=== PATIENT | female | born 1955 | race Caucasian/White ===

== ENCOUNTER 2021-12-07 18:05 | Emergency (ER) | payer OTHER, SELFPAY ==
[2021-12-07 18:09] VITALS: BP 168/89; PULSE 65; RESP 18; TEMP 36.2; O2SAT 99; BMI 39.9
--- NOTE | 2021-12-07 18:51 | EX.ED.DYSGE1 ---
HPI <CATALINA Kim - Last Filed: 12/07/21 19:04> History of Present Illness Chief Complaint: Headache Narrative Narrative: 66-year-old female with history of hypothyroidism, hypertension hyperlipidemia presents to the emergency department with 2 episodes of feeling flushed, headache, after she had 1 episode, she sat down, multiple minutes later, she had another episode and then immediately went to the bathroom to have diarrhea. Patient did have [place] food today, she states that [place] food does not agree with her. Patient states that she was concerned that might she might of had a stroke and she is here for evaluation. Denies any chest pain or shortness of breath, fever chills nausea vomiting PFSH <CATALINA Kim - Last Filed: 12/07/21 19:04> [facility] Medical History (Updated 12/07/21 @ 19:04 by CATALINA Kim) HTN (hypertension) Hyperlipidemia Home Medications atorvastatin 20 mg tablet 20 mg PO DAILY 12/07/21 [History Last Taken Unknown] levothyroxine 25 mcg tablet (Synthroid) 25 mcg PO DAILY 12/07/21 [History Last Taken Unknown] lisinopril 10 mg tablet 10 mg PO DAILY 12/07/21 [History Last Taken Unknown] Allergy/AdvReac Type Severity Reaction Status Date / Time No Known Allergies Allergy Verified 12/07/21 18:07 Social History Smoking Status: Never smoker ROS <CATALINA Kim - Last Filed: 12/07/21 19:04> ROS ED ROS Narrative Constitutional: Negative for fever, chills, weight loss, weakness. Positive for feeling flushed Eyes: Negative for vision loss, vision change, double vision ENT: Negative for any sore throat, ear pain, congestion Cardiovascular: Negative for any chest pain, tightness, palpitations. Positive for feeling her heartbeat in her head Respiratory: Negative for any cough, sputum production, hemoptysis, dyspnea, dyspnea on exertion, orthopnea Gastrointestinal: Negative for any abdominal pain, nausea, vomiting, diarrhea, constipation, blood in stool, blood in vomit : Negative for any urinary frequency, dysuria, retention, blood in urine Muscle skeletal: Negative for any muscle joint pain, stiffness, myalgias, arthralgias, neck pain, back pain Neurological: Negative for any syncope, numbness or tingling, dizziness. Headache Skin: Negative for any rashes, lumps, itching, abrasions, lacerations Psychiatric: Negative for any depression, anxiety, stress, suicidal ideation, homicidal ideation Hematologic: Negative for any easy bruising, excessive bruising, easy bleeding Allergies: Negative for any eczema, hives, rash EXAM <CATALINA Kim - Last Filed: 12/07/21 19:04> Physical Exam Narrative Exam Narrative: Vital signs reviewed. HEET: Head normocephalic atraumatic, TMs clear bilaterally. Posterior pharynx is clear, moist mucous membranes. Nares clear bilaterally. Neck: Supple with no lymphadenopathy or tenderness. No signs of meningismus, negative jolt sign. Cardiac: Regular rate and rhythm no murmurs gallops or rubs, equal peripheral pulses bilaterally. Respiratory: Lungs clear to auscultation bilaterally. No chest tenderness. Abdomen: Soft, nontender, nondistended. No abdominal bruit or pulsatile masses. No hepatosplenomegaly Extremities: No peripheral edema, no signs of gross trauma or deformity. Active full range of motion of all extremities. Neuro: Cranial nerves II through XII intact, no focal neurological deficits. NIH score 0 Skin: Clean dry and intact with no rash, purpura, petechiae, vesicles or pustules. Backs/flank: No CVA tenderness, no midline spinal tenderness, no deformity. Psych: Normal mood and affect. No SI, HI or acute psychosis. Const Vital Signs: 12/07/21 18:09 Temperature 97.1 F L Temperature Source Temporal Pulse Rate 65 Respiratory Rate 18 Blood Pressure 168/89 H Blood Pressure Mean 115 Pulse Ox 99 Oxygen Delivery Method Room Air <Dr. Paul Novoa MD - Last Filed: 12/07/21 22:19> Physical Exam Const Vital Signs: 12/07/21 18:09 Temperature 97.1 F L Temperature Source Temporal Pulse Rate 65 Respiratory Rate 18 Blood Pressure 168/89 H Blood Pressure Mean 115 Pulse Ox 99 Oxygen Delivery Method Room Air [facility] <CATALINA Kim - Last Filed: 12/07/21 19:04> [facility] MDM Narrative Medical decision making narrative: Patient appears well, patient appears nontoxic, vital signs are stable. Patient presents to the emergency department with 2 episodes of flushing, with a slight headache. Patient was originally concern for a stroke/TIA. Patient's physical examination was grossly unremarkable. Patient's blood pressure is slightly elevated however is improved from previous. There is no evidence that suggest this is secondary to her new medication atorvastatin. I believe the patient had an episode secondary to the diarrhea. I believe that this is from a vasovagal response. Patient felt flushed, has slight headache. This episode was relieved after the patient had diarrhea. Patient has had no further incidences, patient's physical examination was unremarkable, patient will follow up closely with her PCP. She instructed to keep a blood pressure journal, as well as follow-up as needed. Instructed return for any worsening symptoms. <Dr. Paul Novoa MD - Last Filed: 12/07/21 22:19> [facility] MDM Narrative Medical decision making narrative: Patient appears well, patient appears nontoxic, vital signs are stable. Patient presents to the emergency department with 2 episodes of flushing, with a slight headache. Patient was originally concern for a stroke/TIA. Patient's physical examination was grossly unremarkable. Patient's blood pressure is slightly elevated however is improved from previous. There is no evidence that suggest this is secondary to her new medication atorvastatin. I believe the patient had an episode secondary to the diarrhea. I believe that this is from a vasovagal response. Patient felt flushed, has slight headache. This episode was relieved after the patient had diarrhea. Patient has had no further incidences, patient's physical examination was unremarkable, patient will follow up closely with her PCP. She instructed to keep a blood pressure journal, as well as follow-up as needed. Instructed return for any worsening symptoms. I have personally performed a face to face assessment of the patient and have reviewed the [facility] Note. I performed a substantive portion of the visit including all aspects of the following. My hu findings include: History is remarkable for patient concerned she had a stroke. She apparently ate [place] food. She had diarrhea Face became flushed and she had lightheadedness. She also states her eyes became red. She denied nausea or vomiting. She denied headache. She denies decreased hearing, ringing or ears. She denied change in vision or double vision. She denies trouble with speech or swallowing. She denied paresthesia, anesthesia motors. She denied problems with coordination or balance. She denied cardiac respiratory symptoms. She denied GI symptoms other than the diarrhea. Exam is vital signs noted and pressure is elevated. H EENT exam is normal. Funduscopic exam reveals normal cup-to-disc ratio with no papilledema. Neck supple. No carotid bruit. Heart is regular without murmur, gallop or rub. Lungs are clear to auscultation. Abdomen is soft nontender. Alert oriented x3. Neuro exam is nonfocal. There is no motor or sensory deficits. There is no dysmetria. There was no clonus or Babinski sign. DTRs were symmetric. Medical Decision Making suspect patient had reaction to the [place] food. She was discharged to home Other additions or changes: None Discharge Plan Triage Chief Complaint: Headache ED Midlevel Provider: Elpidio Bains ED Provider: Paul Novoa Dx/Rx/DC Orders Clinical Impression: Facial flushing, Acute diarrhea Instructions: ED Diarrhea, Unknown Cause Prescriptions: No Action atorvastatin 20 mg Tablet 20 mg PO DAILY levothyroxine [Synthroid] 25 mcg Tablet 25 mcg PO DAILY lisinopril 10 mg Tablet 10 mg PO DAILY Primary Care Provider: Дмитрий Berrios Referrals: Дмитрий Berrios DO [Primary Care Provider] - Activity Restrictions/Additional Instructions: Please follow-up as needed with your PCP Print Language: [place] Disposition Disposition: Home, Self Care Discharge Date/Time: 12/07/21 19:10
== END 2021-12-07 19:10 | disposition home or self-care (01) ==
PROVIDERS: Emergency Provider Emergency Medicine; PCP Family Medicine; Visit Provider Emergency Medicine
DX: R19.7 Diarrhea, unspecified (principal); R23.2 Flushing; I10 Essential (primary) hypertension; E78.5 Hyperlipidemia, unspecified; E03.9 Hypothyroidism, unspecified; R51.9 Headache, unspecified; R42 Dizziness and giddiness; Z79.890 Hormone replacement therapy; Z79.899 Other long term (current) drug therapy
CPT/HCPCS: 99282